=== PATIENT | female | born 1935 | race Caucasian/White ===

== ENCOUNTER → 2018-03-22 12:00 | Outpatient (REF) | payer OTHER, SELFPAY ==
[2018-03-22 12:07] LABS: Add Manual Diff / Slide Review NO; Basophils Percent Auto 0.7 % (0-2); Eosinophils Percent Auto 3.7 % (2-4); Hematocrit 29.3 % (36-46); Hemoglobin 10.3 g/dL (12.0-16.0); Lymphocytes Percent Auto 18.1 % (25-40); Mean Corpuscular Hemoglobin 32.5 PG (26-34); Mean Corpuscular Volume 92.7 fL (80-100); Monocytes Percent Auto 8.3 % (3-14); Neutrophils Absolute Auto 2200 /uL (3000-5900); Neutrophils Percent Auto 69.2 % (50-75); Platelet Count 45 X10^3/uL (150-400); Red Blood Cell Count 3.16 X10^6/uL (4.0-5.2); Red Cell Distribution Width 17.6 % (11.6-14.8); White Blood Cell Count 3.3 X10^3/uL (4.5-11.0)
[2018-03-22 12:21] LABS: INR 1.2 (0.9-1.3); Prothrombin Time 12.7 SECONDS (10.1-12.7)
[2018-03-22 12:25] LABS: Alanine Aminotransferase 51 IU/L (9-52); Albumin 3.1 g/dL (3.5-5.0); Albumin Globulin Ratio 0.8 (1.0-2.8); Alkaline Phosphatase 162 U/L (38-126); Aspartate Aminotransferase 42 IU/L (14-36); BUN Creatinine Ratio 48.9 (6-22); Bilirubin Total 1.9 mg/dL (0.2-1.3); Blood Urea Nitrogen 44 mg/dL (7-17); Calcium 9.4 mg/dL (8.4-10.2); Carbon Dioxide 24 mmol/L (22-32); Chloride 98 mmol/L (98-107); Estimated Glomerular Filt Rate > 60.0 mL/min (>60); Globulin 3.7 g/dL (1.7-4.1); Glucose 105 mg/dL (80-110); HEMOLYSIS < 15 (0-50); Potassium 4.6 mmol/L (3.4-5.1); Sodium 131 mmol/L (137-145); Total Protein 6.8 g/dL (6.3-8.2)
== END ==
LOC: LAB 12:00
PROVIDERS: PCP Internal Medicine; Visit Provider Internal Medicine
DX: R10.9 Unspecified abdominal pain (principal)
CPT/HCPCS: 80053; 85025; 85610

== ENCOUNTER → 2018-04-02 07:25 | Outpatient (REF) | payer OTHER, SELFPAY ==
[2018-04-02 08:13] LABS: Basophils Percent Auto 0.5 % (0-2); Hematocrit 26.5 % (36-46); Hemoglobin 9.2 g/dL (12.0-16.0); Lymphocytes Percent Auto 21.8 % (25-40); Mean Corpuscular HGB Conc 34.9 % (30-36); Mean Corpuscular Hemoglobin 32.8 PG (26-34); Mean Corpuscular Volume 94.1 fL (80-100); Monocytes Percent Auto 6.9 % (3-14); Neutrophils Absolute Auto 1500 /uL (3000-5900); Neutrophils Percent Auto 66.8 % (50-75); Red Blood Cell Count 2.81 X10^6/uL (4.0-5.2); White Blood Cell Count 2.3 X10^3/uL (4.5-11.0)
[2018-04-02 08:22] LABS: Add Manual Diff / Slide Review SLIDE REVIEW; Platelet Count 42 X10^3/uL (150-400)
[2018-04-02 08:29] LABS: Alanine Aminotransferase 47 IU/L (9-52); Albumin Globulin Ratio 0.8 (1.0-2.8); Alkaline Phosphatase 148 U/L (38-126); Aspartate Aminotransferase 51 IU/L (14-36); BUN Creatinine Ratio 52.2 (6-22); Blood Urea Nitrogen 47 mg/dL (7-17); Calcium 9.4 mg/dL (8.4-10.2); Carbon Dioxide 25 mmol/L (22-32); Chloride 97 mmol/L (98-107); Estimated Glomerular Filt Rate > 60.0 mL/min (>60); Globulin 3.7 g/dL (1.7-4.1); Glucose 79 mg/dL (80-110); HEMOLYSIS < 15 (0-50); Potassium 5.3 mmol/L (3.4-5.1); Sodium 131 mmol/L (137-145); Total Protein 6.7 g/dL (6.3-8.2)
[2018-04-02 08:38] LABS: Iron 121 ug/dL (37-170)
[2018-04-02 08:52] LABS: Anisocytosis 2+
== END ==
LOC: LAB 07:25
PROVIDERS: PCP Internal Medicine; Visit Provider Nurse Practitioner Family
DX: R60.9 Edema, unspecified (principal)
CPT/HCPCS: 36415; 80053; 82728; 83540; 85025

== ENCOUNTER → 2018-04-10 13:25 | Outpatient (CLI) | payer OTHER, SELFPAY ==
--- NOTE | 2018-04-10 | DI.RAD.S_ITS ---
PROCEDURE: XR CHEST 2V INDICATIONS: COUGH, BACK PAIN TECHNIQUE: 2 views of the chest were acquired. COMPARISON: [facility], , CHEST 2 VIEW, 07/13/2017, 9:47. FINDINGS: Surgical changes and devices: Surgical clips right upper quadrant. Lungs and pleura: No pneumothorax. Diffuse increased interstitial markings, suspect for pulmonary edema. Small left subpulmonic pleural effusion. Mediastinum: Mediastinal contours are normal. Heart size is normal. Bones and chest wall: No suspicious bony abnormalities. Compression fracture T7 and T8. Soft tissues appear unremarkable. IMPRESSION: 1. Interstitial prominence is suspect for pulmonary edema. Atypical pneumonia cannot be excluded. 2. Small left pleural effusion. Dictated by: Aj Veliz M.D. on 04/10/2018 at 15:53 Approved by: Aj Veliz M.D. on 04/10/2018 at 15:56
== END ==
PROVIDERS: PCP Internal Medicine; Visit Provider Internal Medicine
DX: J90 Pleural effusion, not elsewhere classified (principal); M54.5 Low back pain; R05 Cough
CPT/HCPCS: 71046

== ENCOUNTER → 2018-04-18 08:55 | Outpatient (REF) | payer OTHER, SELFPAY ==
[2018-04-18 09:29] LABS: Add Manual Diff / Slide Review NO; Basophils Percent Auto 0.2 % (0-2); Eosinophils Percent Auto 0.6 % (2-4); Hematocrit 28.7 % (36-46); Hemoglobin 9.7 g/dL (12.0-16.0); Mean Corpuscular HGB Conc 33.8 % (30-36); Mean Corpuscular Hemoglobin 32.5 PG (26-34); Mean Corpuscular Volume 96.3 fL (80-100); Monocytes Percent Auto 4.8 % (3-14); Neutrophils Absolute Auto 4300 /uL (3000-5900); Neutrophils Percent Auto 84.4 % (50-75); Red Blood Cell Count 2.98 X10^6/uL (4.0-5.2); Red Cell Distribution Width 21.5 % (11.6-14.8); White Blood Cell Count 5.1 X10^3/uL (4.5-11.0)
[2018-04-18 09:37] LABS: Platelet Count 33 X10^3/uL (150-400)
[2018-04-18 09:51] LABS: BUN Creatinine Ratio 32.9 (6-22); Blood Urea Nitrogen 69 mg/dL (7-17); Calcium 9.5 mg/dL (8.4-10.2); Carbon Dioxide 23 mmol/L (22-32); Chloride 97 mmol/L (98-107); Estimated Glomerular Filt Rate 22.6 mL/min (>60); Glucose 76 mg/dL (80-110); HEMOLYSIS < 15 (0-50); Potassium 5.2 mmol/L (3.4-5.1); Sodium 133 mmol/L (137-145)
[2018-04-18 09:54] LABS: Anisocytosis 2+; Platelet Estimate Decreased on smear
== END ==
LOC: LAB 08:55
PROVIDERS: PCP Internal Medicine; Visit Provider Nurse Practitioner Family
DX: D64.9 Anemia, unspecified (principal); N18.9 Chronic kidney disease, unspecified; R41.0 Disorientation, unspecified
CPT/HCPCS: 36415; 80048; 82140; 85025

== ENCOUNTER 2018-04-18 19:08 | Emergency (ER) | payer OTHER, SELFPAY ==
--- NOTE | 2018-04-18 19:26 | ED.SOB ---
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 As she was recently treated for pneumonia with Levaquin she took her last dose of Levaquin today. [facility] The provider taking care of her that she was more short of breath today. She has not had fever she has had some mild confusion. An ammonia level was drawn today and is 119. She is awake and alert and talking. She currently has no complaints. Other blood work from this morning does reveal increasing creatinine 2.1 previously 0.91 month ago. Slightly anemic with hemoglobin 9.1 hematocrit 28.7. WBC of 5.1. A son who is the POA at bedside. States that there has been a decline over the past 1-2 weeks. On just more confused on the and started noticing some shaking couple days ago. She has not had any fever. Related Data Home Medications Medication Instructions Recorded Confirmed FERROUS SULFATE #0 10/18/16 acetaminophen #0 10/18/16 clonazepam #0 10/18/16 clotrimazole #0 10/18/16 furosemide 40 mg PO QDAY #0 10/18/16 lactulose [Kristalose] #0 10/18/16 nadolol [Corgard] #0 10/18/16 naproxen sodium [Aleve] #0 10/18/16 pantoprazole #0 10/18/16 trazodone #0 10/18/16 ursodiol [COLLETTE 250] #0 10/18/16 Allergies Allergy/AdvReac Type Severity Reaction Status Date / Time Penicillins [PENICILLINS] Allergy Unknown Verified 04/18/18 19:36 tetanus and diphtheria Allergy Unknown Verified 04/18/18 19:36 toxoids [TETANUS AND DIPHTHERIA TOXOIDS] Review of Systems Review of Systems All systems reviewed & are unremarkable except as noted in HPI and below Constitutional Denies body ache(s), Denies chills, Reports fatigue and Denies frequent falls ENT Ears, Nose, Mouth, and Throat: Denies dizziness Cardiovascular Denies chest pain, Denies irregular heart rhythm, Denies lightheadedness, Denies palpitations, Denies dyspnea and Denies orthopnea Respiratory Reports as per HPI, Denies cough, Denies dyspnea, Denies stridor and Denies wheezing Gastrointestinal Gastrointestinal: Reports as per HPI Genitourinary Denies hematuria, Denies flank pain, Denies urinary incontinence and Denies urinary urgency Integumentary/Breasts Denies pruritus, Denies erythema, Denies rash and Denies wounds Neurologic Denies abnormal speech, Reports confusion, Denies dizziness and Denies frequent falls Psychiatric Reports confusion Endocrine Reports fatigue and Denies palpitations Hematologic/Lymphatic Reports easy bleeding and Reports easy bruising Allergic/Immunologic Denies wheezing PFSH Medical History History of hysterectomy (Acute) Esophageal varices (Acute) Primary biliary cirrhosis (Acute) Gastric leiomyoma (Acute) Thrombocytopenia (Acute) Surgical History History of cholecystectomy (Acute) Social History housing: assisted living facility Exam Initial Vital Signs Initial Vital Signs: Vital Signs Temperature 97.6 F 04/18/18 19:34 Pulse Rate 98 H 04/18/18 19:34 Respiratory Rate 28 H 04/18/18 19:34 Blood Pressure 118/53 L 04/18/18 19:34 Pulse Oximetry 97 04/18/18 19:34 Const General: cooperative, frail appearing and ill appearing (chronically ill) Nutritional Appearance: average body habitus Orientation: alert and awake Eyes General: appearance normal, both eyes and all related structures Neck Neck: normal visual inspection, full ROM and no meningeal signs Chest Chest: normal inspection of the chest Resp Effort & Inspection: normal respiratory effort, able to speak in complete sentences, no grunting and not labored Auscultation: crackles (At bases) Cardio Rhythm: regular rhythm Heart Sounds: S1 normal and S2 normal GI Palpation: soft, No guarding and No mass Auscultation: normal bowel sounds Other: Slightly distended no guarding or rebound Skin General: ecchymosis (Multiple contusions all over) Neuro General: alert, awake and oriented x3 Cognition: normal cognition Speech: speech normal Motor: asterixis Course Orders Ordered: ED Orders 04/18/18 19:27 XR chest 1V Stat 04/18/18 19:44 B Type Natriuretic Peptide Stat 04/18/18 20:29 CT abdomen pelvis wo con Stat 04/18/18 23:42 Basic Metabolic Panel Stat Complete Blood Count AUTO DIFF Stat Lactate (Lactic Acid) Stat Discontinued Medications Sodium Chloride (Normal Saline 0.9%) 1,000 mls @ 150 mls/hr IV CONT BR[place] Last Infusion: 04/19/18 02:59 Dose: 0 mls/hr Admin: 04/18/18 21:15 Dose: 150 mls/hr Levofloxacin (Levaquin) 750 mg in 150 mls @ 100 mls/hr IV NOW ONE Stop: 04/19/18 03:01 Last Infusion: 04/19/18 03:00 Dose: 100 mls/hr Admin: 04/19/18 02:45 Dose: 100 mls/hr Metronidazole (Flagyl) 500 mg in 100 mls @ 100 mls/hr IV NOW ONE Stop: 04/19/18 02:31 Last Infusion: 04/19/18 02:46 Dose: 0 mls/hr Admin: 04/19/18 01:37 Dose: 100 mls/hr Consultations Consultation #1: Dr. Bailey surgery on-call [facility] has been updated on patient's symptoms and test results. Patient is a high risk surgical candidate and would needed platelets before surgery. [facility] does not have platelets in stock. Consultation #2: I spoke with Dr. Rossi at [facility] who has been updated on patient's symptoms and test results. He agrees that patient should likely be transferred for further evaluation unknown if she has a surgical candidate at this time. Consultation #3: Dr. Garzon hospitalist at [facility] agrees with transfer. Recommend Levaquin and Flagyl at this time for some antibiotics. Vital Signs - 8 hr 04/18/18 19:34 04/18/18 20:05 04/18/18 21:20 Temperature 97.6 F Pulse Rate 98 H 88 100 H Respiratory Rate 28 H 19 20 Blood Pressure 118/53 L Blood Pressure [Left Arm] 104/65 102/63 Pulse Oximetry 97 97 97 04/18/18 22:49 04/19/18 00:33 04/19/18 02:00 Temperature Pulse Rate 100 H 100 H 100 H Respiratory Rate 23 14 20 Blood Pressure Blood Pressure [Left Arm] 94/62 96/45 L 98/49 L Pulse Oximetry 97 96 96 04/19/18 03:03 Temperature Pulse Rate 103 H Respiratory Rate 22 Blood Pressure 101/50 L Blood Pressure [Left Arm] Pulse Oximetry 97 MDM - SOB/Dyspnea Medical Records Attestation: I reviewed the patient's medical records. Lab Data Attestation: I reviewed the patient's lab results. Result diagrams: 04/18/18 23:42 04/18/18 23:42 Lab Results 04/18/18 04/18/18 04/18/18 Range/Units 19:44 23:42 23:42 WBC 5.3 (4.5-11.0) X10^3/uL RBC 2.87 L (4.0-5.2) X10^6/uL Hgb 9.4 L (12.0-16.0) g/dL Hct 27.6 L (36-46) % MCV 96.4 (80-100) fL MCH 32.8 (26-34) PG MCHC 34.1 (30-36) % RDW 21.0 H (11.6-14.8) % Plt Count 29 L* (150-400) X10^3/uL Neut % (Auto) 86.8 H (50-75) % Lymph % (Auto) 6.7 L (25-40) % Hughes % (Auto) 5.4 (3-14) % Eos % (Auto) 0.8 L (2-4) % Baso % (Auto) 0.3 (0-2) % Neut # (Auto) 4600 (5376-3932) /uL Sodium 132 L (137-145) mmol/L Potassium 5.2 H (3.4-5.1) mmol/L Chloride 98 (98-107) mmol/L Carbon Dioxide 22 (22-32) mmol/L BUN 68 H (7-17) mg/dL Creatinine 2.00 H (0.52-1.04) mg/dL Estimated GFR 23.9 L (>60) mL/min BUN/Creatinine Ratio 34.0 H (6-22) Glucose 94 (80-110) mg/dL Lactate (0.7-2.1) mmol/L Calcium 9.4 (8.4-10.2) mg/dL B-Natriuretic Peptide < 100.0 (<100) 04/18/18 Range/Units 23:42 WBC (4.5-11.0) X10^3/uL RBC (4.0-5.2) X10^6/uL Hgb (12.0-16.0) g/dL Hct (36-46) % MCV (80-100) fL MCH (26-34) PG MCHC (30-36) % RDW (11.6-14.8) % Plt Count (150-400) X10^3/uL Neut % (Auto) (50-75) % Lymph % (Auto) (25-40) % Hughes % (Auto) (3-14) % Eos % (Auto) (2-4) % Baso % (Auto) (0-2) % Neut # (Auto) (7843-2337) /uL Sodium (137-145) mmol/L Potassium (3.4-5.1) mmol/L Chloride (98-107) mmol/L Carbon Dioxide (22-32) mmol/L BUN (7-17) mg/dL Creatinine (0.52-1.04) mg/dL Estimated GFR (>60) mL/min BUN/Creatinine Ratio (6-22) Glucose (80-110) mg/dL Lactate 0.9 (0.7-2.1) mmol/L Calcium (8.4-10.2) mg/dL B-Natriuretic Peptide (<100) Imaging Data Chest x-ray: Radiologist's impression: PROCEDURE: XR CHEST 1V INDICATIONS: short of breath TECHNIQUE: One view of the chest was acquired. COMPARISON: [facility], , CHEST 2 VIEW, 07/13/2017, 9:47. [facility], , XR CHEST 2V, 04/10/2018, 13:14. FINDINGS: Surgical changes and devices: Surgical clips in the right upper quadrant, likely related to cholecystectomy. Lungs and pleura: Left lower lung infiltrate. There is small left pleural effusion. Bibasilar atelectasis. Mediastinum: Mediastinal contours appear normal. Heart size is normal. Bones and chest wall: No suspicious bony lesions. Overlying soft tissues appear unremarkable. IMPRESSION: 1. Left lower lung infiltrate and small left pleural effusion. 2. Bibasilar atelectasis. Dictated by: Judy Velasquez M.D. on 04/18/2018 at 20:10 Approved by: Judy Velasquez M.D. on 04/18/2018 at 20:18 ADDENDUM: There is a lucency right lower lobe, which raises the possibility of free peritoneal air. An abdominal CT is recommended for followup. Dictated by: Judy Velasquez M.D. on 04/18/2018 at 22:21 CT scan - abdomen: Radiologist's impression: PROCEDURE: CT ABDOMEN PELVIS WO CON INDICATIONS: PBC with possible free air on xray TECHNIQUE: After the administration of oral contrast, 5 mm thick sections acquired from the diaphragms to the symphysis. 5 mm coronal and sagittal reformats were performed. For radiation dose reduction, the following was used: automated exposure control, adjustment of mA and/or kV according to patient size. COMPARISON: [facility], CR, XR CHEST 1V, 04/18/2018, 19:37. [facility], CR, XR CHEST 2V, 04/10/2018, 13:14. [facility], CR, CHEST 2 VIEW, 07/13/2017, 9:47. FINDINGS: Image quality: There are motion artifacts. ABDOMEN: Lung bases: Small left pleural effusion. Bibasilar consolidations or atelectasis. Heart size is normal. Solid organs: Liver demonstrates nodular contour consistent with cirrhosis. Gallbladder is surgically absent. Pancreas is normal in size. Spleen is enlarged. No adrenal nodules. Both kidneys are decreased in size, without hydronephrosis or nephrolithiasis. Peritoneum and bowel: There is pneumoperitoneum with free air. The source of the free air is uncertain. Small bowel loops demonstrate normal wall thickness and caliber. Cecum appears thickened. Colonic diverticula are present. No evidence for acute diverticulitis. A large amount of stool is present in colon. There is a trace amount of free fluid. Nodes and vessels: No retroperitoneal or mesenteric adenopathy by size criteria. Aorta and inferior vena cava are normal in size. Miscellaneous: There is a periumbilical ventral hernia which contains free peritoneal air. PELVIS: Genitourinary: Bladder wall thickness is normal. Miscellaneous: No inguinal hernias or adenopathy. Bones: No suspicious bony lesions. Multiple vertebral body compression fractures are present, severe at T12, moderate at T3 and mild at T4. IMPRESSION: 1. Free peritoneal air is present consistent with viscus perforation. The site perforation is not definitively identified. Potential causes include perforated peptic ulcer, perforated mass and perforated diverticulitis. 2. Cirrhosis. 3. Cecum is thickened, which may be secondary to infectious, inflammatory or neoplastic etiology. There is no free air along the cecum. 4. Splenomegaly. This finding may be secondary to portal hypertension. 5. Diverticulosis without acute diverticulitis. 6. Small left pleural effusion. Bibasilar pneumonia or atelectasis. 7. Multiple compression fractures. The result was discussed with Dr. Sparks in ER on 04/18/2018 at 2246 hours. Dictated by: Judy Velasquez M.D. on 04/18/2018 at 22:35 MDM Narrative Medical decision making narrative: Multiple conversations with son who is the DPOA and the patient. Patient is awake and alert she understands if surgery does not happen she will likely . The son also understands this. She understands that she is I risk surgical candidate as she may not do well with surgery and may have complications especially with her low platelets. They understand options are staying at [facility] with comfort measures only versus being transferred to a facility with platelets for surgery. At this time home they are choosing to be transferred. Patient is transferred to [facility] for further evaluation and possible surgery. Blood pressure has been fluctuating with a systolic of 88-100. It does respond well to IV fluids. She remains awake and alert and talking. Discharge Plan Departure Patient Disposition: General Acute Hospital Clinical Impression: Perforation bowel, Thrombocytopenia, Acute kidney injury Discharge Date/Time: 04/19/18 03:03 Interventions: ED Discharge Assessment Last Done: 04/19/18 03:03 Prescriptions: No Action acetaminophen 325 MG tablet Qty: 0 RF: 0 naproxen sodium [Aleve] 220 MG capsule Qty: 0 RF: 0 FERROUS SULFATE Qty: 0 RF: 0 nadolol [Corgard] 20 mg Tablet Qty: 0 RF: 0 trazodone 50 MG tablet Qty: 0 RF: 0 clonazepam 0.5 MG tablet Qty: 0 RF: 0 furosemide 40 MG tablet 40 mg PO QDAY Qty: 0 RF: 0 lactulose [Kristalose] 10 GM packet Qty: 0 RF: 0 pantoprazole 40 MG tablet,delayed release (DR/EC) Qty: 0 RF: 0 ursodiol [COLLETTE 250] 250 MG tablet Qty: 0 RF: 0 clotrimazole 1 % cream Qty: 0 RF: 0 Referrals: Stephanie Negron MD [Primary Care Provider] -
--- NOTE | 2018-04-18 19:32 | ED_ITS ---
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 As she was recently treated for pneumonia with Levaquin she took her last dose of Levaquin today. She resides over at a [facility] care facility. The provider taking care of her that she was more short of breath today. She has not had fever she has had some mild confusion. An ammonia level was drawn today and is 119. She is awake and alert and talking. She currently has no complaints. Other blood work from this morning does reveal increasing creatinine 2.1 previously 0.91 month ago. Slightly anemic with hemoglobin 9.1 hematocrit 28.7. WBC of 5.1. A son who is the POA at bedside. States that there has been a decline over the past 1-2 weeks. On just more confused on the and started noticing some shaking couple days ago. She has not had any fever. Related Data Home Medications Medication Instructions Recorded Confirmed FERROUS SULFATE #0 10/18/16 acetaminophen #0 10/18/16 clonazepam #0 10/18/16 clotrimazole #0 10/18/16 furosemide 40 mg PO QDAY #0 10/18/16 lactulose [Kristalose] #0 10/18/16 nadolol [Corgard] #0 10/18/16 naproxen sodium [Aleve] #0 10/18/16 pantoprazole #0 10/18/16 trazodone #0 10/18/16 ursodiol [COLLETTE 250] #0 10/18/16 Allergies Allergy/AdvReac Type Severity Reaction Status Date / Time Penicillins [PENICILLINS] Allergy Unknown Verified 04/18/18 19:36 tetanus and diphtheria Allergy Unknown Verified 04/18/18 19:36 toxoids [TETANUS AND DIPHTHERIA TOXOIDS] Review of Systems Review of Systems All systems reviewed & are unremarkable except as noted in HPI and below Constitutional Denies body ache(s), Denies chills, Reports fatigue and Denies frequent falls ENT Ears, Nose, Mouth, and Throat: Denies dizziness Cardiovascular Denies chest pain, Denies irregular heart rhythm, Denies lightheadedness, Denies palpitations, Denies dyspnea and Denies orthopnea Respiratory Reports as per HPI, Denies cough, Denies dyspnea, Denies stridor and Denies wheezing Gastrointestinal Gastrointestinal: Reports as per HPI Genitourinary Denies hematuria, Denies flank pain, Denies urinary incontinence and Denies urinary urgency Integumentary/Breasts Denies pruritus, Denies erythema, Denies rash and Denies wounds Neurologic Denies abnormal speech, Reports confusion, Denies dizziness and Denies frequent falls Psychiatric Reports confusion Endocrine Reports fatigue and Denies palpitations Hematologic/Lymphatic Reports easy bleeding and Reports easy bruising Allergic/Immunologic Denies wheezing PFSH Medical History History of hysterectomy (Acute) Esophageal varices (Acute) Primary biliary cirrhosis (Acute) Gastric leiomyoma (Acute) Thrombocytopenia (Acute) Surgical History History of cholecystectomy (Acute) Social History housing: assisted living facility Exam Initial Vital Signs Initial Vital Signs: Vital Signs Temperature 97.6 F 04/18/18 19:34 Pulse Rate 98 H 04/18/18 19:34 Respiratory Rate 28 H 04/18/18 19:34 Blood Pressure 118/53 L 04/18/18 19:34 Pulse Oximetry 97 04/18/18 19:34 Const General: cooperative, frail appearing and ill appearing (chronically ill) Nutritional Appearance: average body habitus Orientation: alert and awake Eyes General: appearance normal, both eyes and all related structures Neck Neck: normal visual inspection, full ROM and no meningeal signs Chest Chest: normal inspection of the chest Resp Effort & Inspection: normal respiratory effort, able to speak in complete sentences, no grunting and not labored Auscultation: crackles (At bases) Cardio Rhythm: regular rhythm Heart Sounds: S1 normal and S2 normal GI Palpation: soft, No guarding and No mass Auscultation: normal bowel sounds Other: Slightly distended no guarding or rebound Skin General: ecchymosis (Multiple contusions all over) Neuro General: alert, awake and oriented x3 Cognition: normal cognition Speech: speech normal Motor: asterixis Course Orders Ordered: ED Orders 04/18/18 19:27 XR chest 1V Stat 04/18/18 19:44 B Type Natriuretic Peptide Stat 04/18/18 20:29 CT abdomen pelvis wo con Stat 04/18/18 23:42 Basic Metabolic Panel Stat Complete Blood Count AUTO DIFF Stat Lactate (Lactic Acid) Stat Discontinued Medications Sodium Chloride (Normal Saline 0.9%) 1,000 mls @ 150 mls/hr IV CONT BRENTON Last Infusion: 04/19/18 02:59 Dose: 0 mls/hr Admin: 04/18/18 21:15 Dose: 150 mls/hr Levofloxacin (Levaquin) 750 mg in 150 mls @ 100 mls/hr IV NOW ONE Stop: 04/19/18 03:01 Last Infusion: 04/19/18 03:00 Dose: 100 mls/hr Admin: 04/19/18 02:45 Dose: 100 mls/hr Metronidazole (Flagyl) 500 mg in 100 mls @ 100 mls/hr IV NOW ONE Stop: 04/19/18 02:31 Last Infusion: 04/19/18 02:46 Dose: 0 mls/hr Admin: 04/19/18 01:37 Dose: 100 mls/hr Consultations Consultation #1: Dr. Bailey surgery on-call [facility] has been updated on patient's symptoms and test results. Patient is a high risk surgical candidate and would needed platelets before surgery. [facility] does not have platelets in stock. Consultation #2: [facility] who has been updated on patient's symptoms and test results. He agrees that patient should likely be transferred for further evaluation unknown if she has a surgical candidate at this time. Consultation #3: Dr. Garzon hospitalist at [facility] agrees with transfer. Recommend Levaquin and Flagyl at this time for some antibiotics. Vital Signs - 8 hr 04/18/18 19:34 04/18/18 20:05 04/18/18 21:20 Temperature 97.6 F Pulse Rate 98 H 88 100 H Respiratory Rate 28 H 19 20 Blood Pressure 118/53 L Blood Pressure [Left Arm] 104/65 102/63 Pulse Oximetry 97 97 97 04/18/18 22:49 04/19/18 00:33 04/19/18 02:00 Temperature Pulse Rate 100 H 100 H 100 H Respiratory Rate 23 14 20 Blood Pressure Blood Pressure [Left Arm] 94/62 96/45 L 98/49 L Pulse Oximetry 97 96 96 04/19/18 03:03 Temperature Pulse Rate 103 H Respiratory Rate 22 Blood Pressure 101/50 L Blood Pressure [Left Arm] Pulse Oximetry 97 MDM - SOB/Dyspnea Medical Records Attestation: I reviewed the patient's medical records. Lab Data Attestation: I reviewed the patient's lab results. Result diagrams: 04/18/18 23:42 04/18/18 23:42 Lab Results 04/18/18 04/18/18 04/18/18 Range/Units 19:44 23:42 23:42 WBC 5.3 (4.5-11.0) X10^3/uL RBC 2.87 L (4.0-5.2) X10^6/uL Hgb 9.4 L (12.0-16.0) g/dL Hct 27.6 L (36-46) % MCV 96.4 (80-100) fL MCH 32.8 (26-34) PG MCHC 34.1 (30-36) % RDW 21.0 H (11.6-14.8) % Plt Count 29 L* (150-400) X10^3/uL Neut % (Auto) 86.8 H (50-75) % Lymph % (Auto) 6.7 L (25-40) % Glades % (Auto) 5.4 (3-14) % Eos % (Auto) 0.8 L (2-4) % Baso % (Auto) 0.3 (0-2) % Neut # (Auto) 4600 (3324-2139) /uL Sodium 132 L (137-145) mmol/L Potassium 5.2 H (3.4-5.1) mmol/L Chloride 98 (98-107) mmol/L Carbon Dioxide 22 (22-32) mmol/L BUN 68 H (7-17) mg/dL Creatinine 2.00 H (0.52-1.04) mg/dL Estimated GFR 23.9 L (>60) mL/min BUN/Creatinine Ratio 34.0 H (6-22) Glucose 94 (80-110) mg/dL Lactate (0.7-2.1) mmol/L Calcium 9.4 (8.4-10.2) mg/dL B-Natriuretic Peptide < 100.0 (<100) 04/18/18 Range/Units 23:42 WBC (4.5-11.0) X10^3/uL RBC (4.0-5.2) X10^6/uL Hgb (12.0-16.0) g/dL Hct (36-46) % MCV (80-100) fL MCH (26-34) PG MCHC (30-36) % RDW (11.6-14.8) % Plt Count (150-400) X10^3/uL Neut % (Auto) (50-75) % Lymph % (Auto) (25-40) % Glades % (Auto) (3-14) % Eos % (Auto) (2-4) % Baso % (Auto) (0-2) % Neut # (Auto) (3931-0681) /uL Sodium (137-145) mmol/L Potassium (3.4-5.1) mmol/L Chloride (98-107) mmol/L Carbon Dioxide (22-32) mmol/L BUN (7-17) mg/dL Creatinine (0.52-1.04) mg/dL Estimated GFR (>60) mL/min BUN/Creatinine Ratio (6-22) Glucose (80-110) mg/dL Lactate 0.9 (0.7-2.1) mmol/L Calcium (8.4-10.2) mg/dL B-Natriuretic Peptide (<100) Imaging Data Chest x-ray: Radiologist's impression: PROCEDURE: XR CHEST 1V INDICATIONS: short of breath TECHNIQUE: One view of the chest was acquired. COMPARISON: [facility], , CHEST 2 VIEW, 07/13/2017, 9:47. [facility], , XR CHEST 2V, 04/10/2018, 13:14. FINDINGS: Surgical changes and devices: Surgical clips in the right upper quadrant, likely related to cholecystectomy. Lungs and pleura: Left lower lung infiltrate. There is small left pleural effusion. Bibasilar atelectasis. Mediastinum: Mediastinal contours appear normal. Heart size is normal. Bones and chest wall: No suspicious bony lesions. Overlying soft tissues appear unremarkable. IMPRESSION: 1. Left lower lung infiltrate and small left pleural effusion. 2. Bibasilar atelectasis. Dictated by: Judy Velasquez M.D. on 04/18/2018 at 20:10 Approved by: Judy Velasquez M.D. on 04/18/2018 at 20:18 ADDENDUM: There is a lucency right lower lobe, which raises the possibility of free peritoneal air. An abdominal CT is recommended for followup. Dictated by: Judy Velasquez M.D. on 04/18/2018 at 22:21 CT scan - abdomen: Radiologist's impression: PROCEDURE: CT ABDOMEN PELVIS WO CON INDICATIONS: PBC with possible free air on xray TECHNIQUE: After the administration of oral contrast, 5 mm thick sections acquired from the diaphragms to the symphysis. 5 mm coronal and sagittal reformats were performed. For radiation dose reduction, the following was used: automated exposure control, adjustment of mA and/or kV according to patient size. COMPARISON: [facility], CR, XR CHEST 1V, 04/18/2018, 19:37. [facility], CR, XR CHEST 2V, 04/10/2018, 13:14. [facility], CR, CHEST 2 VIEW, 07/13/2017, 9: 47. FINDINGS: Image quality: There are motion artifacts. ABDOMEN: Lung bases: Small left pleural effusion. Bibasilar consolidations or atelectasis. Heart size is normal. Solid organs: Liver demonstrates nodular contour consistent with cirrhosis. Gallbladder is surgically absent. Pancreas is normal in size. Spleen is enlarged. No adrenal nodules. Both kidneys are decreased in size, without hydronephrosis or nephrolithiasis. Peritoneum and bowel: There is pneumoperitoneum with free air. The source of the free air is uncertain. Small bowel loops demonstrate normal wall thickness and caliber. Cecum appears thickened. Colonic diverticula are present. No evidence for acute diverticulitis. A large amount of stool is present in colon. There is a trace amount of free fluid. Nodes and vessels: No retroperitoneal or mesenteric adenopathy by size criteria. Aorta and inferior vena cava are normal in size. Miscellaneous: There is a periumbilical ventral hernia which contains free peritoneal air. PELVIS: Genitourinary: Bladder wall thickness is normal. Miscellaneous: No inguinal hernias or adenopathy. Bones: No suspicious bony lesions. Multiple vertebral body compression fractures are present, severe at T12, moderate at T3 and mild at T4. IMPRESSION: 1. Free peritoneal air is present consistent with viscus perforation. The site perforation is not definitively identified. Potential causes include perforated peptic ulcer, perforated mass and perforated diverticulitis. 2. Cirrhosis. 3. Cecum is thickened, which may be secondary to infectious, inflammatory or neoplastic etiology. There is no free air along the cecum. 4. Splenomegaly. This finding may be secondary to portal hypertension. 5. Diverticulosis without acute diverticulitis. 6. Small left pleural effusion. Bibasilar pneumonia or atelectasis. 7. Multiple compression fractures. The result was discussed with Dr. Sparks in ER on 04/18/2018 at 2246 hours. Dictated by: Judy Velasquez M.D. on 04/18/2018 at 22:35 MDM Narrative Medical decision making narrative: Multiple conversations with son who is the DPOA and the patient. Patient is awake and alert she understands if surgery does not happen she will likely . The son also understands this. She understands that she is I risk surgical candidate as she may not do well with surgery and may have complications especially with her low platelets. They understand options are staying at [facility] with comfort measures only versus being transferred to a facility with platelets for surgery. At this time home they are choosing to be transferred. Patient is transferred to [facility] for further evaluation and possible surgery. Blood pressure has been fluctuating with a systolic of 88-100. It does respond well to IV fluids. She remains awake and alert and talking. Discharge Plan Departure Patient Disposition: [facility] Clinical Impression: Perforation bowel, Thrombocytopenia, Acute kidney injury Discharge Date/Time: 04/19/18 03:03 Interventions: ED Discharge Assessment Last Done: 04/19/18 03:03 Prescriptions: No Action acetaminophen 325 MG tablet Qty: 0 RF: 0 naproxen sodium [Aleve] 220 MG capsule Qty: 0 RF: 0 FERROUS SULFATE Qty: 0 RF: 0 nadolol [Corgard] 20 mg Tablet Qty: 0 RF: 0 trazodone 50 MG tablet Qty: 0 RF: 0 clonazepam 0.5 MG tablet Qty: 0 RF: 0 furosemide 40 MG tablet 40 mg PO QDAY Qty: 0 RF: 0 lactulose [Kristalose] 10 GM packet Qty: 0 RF: 0 pantoprazole 40 MG tablet,delayed release (DR/EC) Qty: 0 RF: 0 ursodiol [COLLETTE 250] 250 MG tablet Qty: 0 RF: 0 clotrimazole 1 % cream Qty: 0 RF: 0 Referrals: Stephanie Negron MD [Primary Care Provider] -
[2018-04-18 19:34] VITALS: BP 118/53; PULSE 98; RESP 28; TEMP 36.4; O2SAT 97
--- NOTE | 2018-04-18 19:44 | PC.NURSE ---
PT arrived via [facility] from [facility], medics report pt has increased ammonia levels and increasing WOB, with non productive cough LS bilat wheezes 97% on RA, pt denies pain or CP.
[2018-04-18 20:05] VITALS: BP 104/65; PULSE 88; RESP 19; O2SAT 97
[2018-04-18 20:11] LABS: B Type Natriuretic Peptide < 100.0 (<100)
--- NOTE | 2018-04-18 20:29 | DI.CT.S_ITS ---
PROCEDURE: CT ABDOMEN PELVIS WO CON INDICATIONS: PBC with possible free air on xray TECHNIQUE: After the administration of oral contrast, 5 mm thick sections acquired from the diaphragms to the symphysis. 5 mm coronal and sagittal reformats were performed. For radiation dose reduction, the following was used: automated exposure control, adjustment of mA and/or kV according to patient size. COMPARISON: [facility], CR, XR CHEST 1V, 04/18/2018, 19:37. [facility], CR, XR CHEST 2V, 04/10/2018, 13:14. [facility], CR, CHEST 2 VIEW, 07/13/2017, 9:47. FINDINGS: Image quality: There are motion artifacts. ABDOMEN: Lung bases: Small left pleural effusion. Bibasilar consolidations or atelectasis. Heart size is normal. Solid organs: Liver demonstrates nodular contour consistent with cirrhosis. Gallbladder is surgically absent. Pancreas is normal in size. Spleen is enlarged. No adrenal nodules. Both kidneys are decreased in size, without hydronephrosis or nephrolithiasis. Peritoneum and bowel: There is pneumoperitoneum with free air. The source of the free air is uncertain. Small bowel loops demonstrate normal wall thickness and caliber. Cecum appears thickened. Colonic diverticula are present. No evidence for acute diverticulitis. A large amount of stool is present in colon. There is a trace amount of free fluid. Nodes and vessels: No retroperitoneal or mesenteric adenopathy by size criteria. Aorta and inferior vena cava are normal in size. Miscellaneous: There is a periumbilical ventral hernia which contains free peritoneal air. PELVIS: Genitourinary: Bladder wall thickness is normal. Miscellaneous: No inguinal hernias or adenopathy. Bones: No suspicious bony lesions. Multiple vertebral body compression fractures are present, severe at T12, moderate at T3 and mild at T4. IMPRESSION: 1. Free peritoneal air is present consistent with viscus perforation. The site perforation is not definitively identified. Potential causes include perforated peptic ulcer, perforated mass and perforated diverticulitis. 2. Cirrhosis. 3. Cecum is thickened, which may be secondary to infectious, inflammatory or neoplastic etiology. There is no free air along the cecum. 4. Splenomegaly. This finding may be secondary to portal hypertension. 5. Diverticulosis without acute diverticulitis. 6. Small left pleural effusion. Bibasilar pneumonia or atelectasis. 7. Multiple compression fractures. The result was discussed with Dr. Sparks in ER on 04/18/2018 at 2246 hours. Dictated by: Judy Velasquez M.D. on 04/18/2018 at 22:35 Approved by: Judy Velasquez M.D. on 04/18/2018 at 23:10
[2018-04-18] MEDS: SODIUM CHLORIDE 0.9% 1,000 ML 150 ML IV (21:15)
[2018-04-18 21:20] VITALS: BP 102/63; PULSE 100; RESP 20; O2SAT 97
[2018-04-18 22:49] VITALS: BP 94/62; PULSE 100; RESP 23; O2SAT 97
[2018-04-18 23:55] LABS: Hemoglobin 9.4 g/dL (12.0-16.0); Mean Corpuscular Hemoglobin 32.8 PG (26-34); Mean Corpuscular Volume 96.4 fL (80-100); Red Blood Cell Count 2.87 X10^6/uL (4.0-5.2); White Blood Cell Count 5.3 X10^3/uL (4.5-11.0)
[2018-04-19 00:03] LABS: Add Manual Diff / Slide Review NO; Basophils Percent Auto 0.3 % (0-2); Eosinophils Percent Auto 0.8 % (2-4); Hematocrit 27.6 % (36-46); Lymphocytes Percent Auto 6.7 % (25-40); Mean Corpuscular HGB Conc 34.1 % (30-36); Monocytes Percent Auto 5.4 % (3-14); Neutrophils Absolute Auto 4600 /uL (3000-5900); Neutrophils Percent Auto 86.8 % (50-75)
[2018-04-19 00:04] LABS: Platelet Count 29 X10^3/uL (150-400)
[2018-04-19 00:08] LABS: Blood Urea Nitrogen 68 mg/dL (7-17); Calcium 9.4 mg/dL (8.4-10.2); Carbon Dioxide 22 mmol/L (22-32); Chloride 98 mmol/L (98-107); Estimated Glomerular Filt Rate 23.9 mL/min (>60); Glucose 94 mg/dL (80-110); HEMOLYSIS < 15 (0-50); Lactate (Lactic Acid) 0.9 mmol/L (0.7-2.1); Potassium 5.2 mmol/L (3.4-5.1); Sodium 132 mmol/L (137-145)
[2018-04-19 00:33] VITALS: BP 96/45; PULSE 100; RESP 14; O2SAT 96
[2018-04-19] MEDS: metroNIDAZOLE 500 MG/100 ML PIGGYBACK 100 MG IV (01:37)
[2018-04-19 02:00] VITALS: BP 98/49; PULSE 100; RESP 20; O2SAT 96
[2018-04-19] MEDS: levoFLOXacin 750 MG/150 ML PIGGYBACK 100 MG IV (02:45)
[2018-04-19 03:03] VITALS: BP 101/50; PULSE 103; RESP 22; O2SAT 97
== END 2018-04-19 03:03 | disposition short-term general hospital (02) ==
PROVIDERS: Emergency Provider Emergency Medicine; PCP Internal Medicine
DX: K63.1 Perforation of intestine (nontraumatic) (principal); D69.6 Thrombocytopenia, unspecified; N17.9 Acute kidney failure, unspecified
CPT/HCPCS: 36415; 71045; 74176; 80048; 82140; 83605; 83880; 85025; 96361; 96365; 96375; 99284; J1956